=== PATIENT | female | born 1985 | race Caucasian/White ===

== ENCOUNTER 2018-05-30 06:07 | Inpatient (IN) | payer BC ==
[~2018-05-30] VITALS: Ht 165.1 cm; Wt 71.8 kg
[2018-05-30] MEDS ORDERED: OXYTOCIN 30U/ 0.9% NaCL 500ML 500 ML IV ONE (06:10)
[2018-05-30] MEDS ORDERED: OXYTOCIN 30U/ 0.9% NaCL 500ML 500 ML IV PRN (06:10)
[2018-05-30] MEDS: D5%-LACTATED RINGERS 1,000 ML IV SCH ×3 (06:10→22:10)
[2018-05-30] MEDS ORDERED: MISOPROSTOL 25 MCG TABLET ONE (06:18)
[2018-05-30] MEDS ORDERED: OXYTOCIN 30U/ 0.9% NaCL 500ML 500 ML ONE (06:18)
[2018-05-30] MEDS ORDERED: NEWBORN KIT ONE (06:18)
[2018-05-30] MEDS: LACTATED RINGERS 1,000 ML IV SCH ×6 (06:30→22:10)
[2018-05-30] MEDS ORDERED: ONDANSETRON 2MG/ML, 2ML IVPush PRN ×2 (06:30→20:00)
[2018-05-30] MEDS ORDERED: MISOPROSTOL 25 MCG TABLET VG PRN (06:30)
[2018-05-30] MEDS ORDERED: CALCIUM CARBONATE 500 MG TAB.CHEW PO PRN ×2 (06:30→20:30)
[2018-05-30] MEDS ORDERED: FENTANYL PF 100 MCG/2ML IV PRN ×2 (06:30→20:00)
[2018-05-30] MEDS ORDERED: FENTANYL PF 100 MCG/2ML IVPush PRN (06:30)
[2018-05-30 06:32] LABS: BASOPHILS # (AUTO) 0.12 x10^3/uL (0-0.1); BASOPHILS % (AUTO) 1 % (0-1); EOSINOPHILS # (AUTO) 0.11 x10^3/uL (0-0.4); EOSINOPHILS % (AUTO) 1 % (1-7); LYMPHOCYTES # (AUTO) 3.06 x10^3/uL (1-3.4); LYMPHOCYTES % (AUTO) 33 % (22-44); MD NO; MEAN CORPUSCULAR HEMOGLOBIN 32.5 pg (27.0-34.8); MEAN CORPUSCULAR HGB CONC 34.4 g/dL (32.4-35.8); MEAN CORPUSCULAR VOLUME 94.4 fL (80-100); MEAN PLATELET VOLUME 8.3 fL (7.4-10.4); MONOCYTES # (AUTO) 0.63 x10^3/uL (0.2-0.8); MONOCYTES % (AUTO) 7 % (2-9); NEUTROPHILS # (AUTO) 5.28 x10^3/uL (1.8-6.8); NEUTROPHILS % (AUTO) 57 % (42-75); PLATELET COUNT 246 x10^3/uL (130-400); RED BLOOD COUNT 3.98 x10^6/uL (3.82-5.3); RED CELL DISTRIBUTION WIDTH 14.6 % (9.6-15.2)
[2018-05-30 06:43] VITALS: BP 107/66
[2018-05-30] MEDS: PLEASE ENTER HEIGHT AND WEIGHT MC SCH ×3 (06:44→23:00)
[2018-05-30] MEDS ORDERED: PLEASE ENTER ALLERGIES MC SCH (07:00)
[2018-05-30] MEDS ORDERED: TERBUTALINE 1 MG/ML, 1ML ONE (08:43)
[2018-05-30] MEDS: TERBUTALINE 1 MG/ML, 1ML IVPush PRN ×2 (08:44→18:10)
[2018-05-30] MEDS ORDERED: METOCLOPRAMIDE 5 MG/ML, 2ML ONE (08:50)
[2018-05-30] MEDS ORDERED: SODIUM CITRATE/CITRIC ACID 30 ML UDC ONE (08:50)
[2018-05-30] MEDS ORDERED: SODIUM CITRATE/CITRIC ACID 30 ML UDC PO PRN (09:30)
[2018-05-30] MEDS ORDERED: METOCLOPRAMIDE 5 MG/ML, 2ML IVPush PRN (09:30)
[2018-05-30] MEDS ORDERED: TERBUTALINE 1 MG/ML, 1ML IVPush PRN (09:30)
[2018-05-30] MEDS ORDERED: FENTANYL/BUPIV./NS/PF 250 ML EPIDCONT SCH ×2 (09:57→15:10)
[2018-05-30] MEDS ORDERED: FENTANYL PF 500 MCG, BUPIVACAINE/PF 0.5%, 30ML 62.5 ML in SODIUM CHLORIDE 0.9% 177.5 ML EPIDCONT SCH (10:30)
[2018-05-30] MEDS ORDERED: LACTATED RINGERS 1,000 ML IV SCH (15:10)
[2018-05-30] MEDS ORDERED: LACTATED RINGERS 1,000 ML IVBOLUS PRN (15:30)
[2018-05-30] MEDS ORDERED: NALOXONE 0.4 MG/ML, 1ML IVPush PRN (15:30)
[2018-05-30] MEDS ORDERED: EPHEDRINE 50 MG/ML, 1ML IVPush PRN ×2 (15:30→20:00)
[2018-05-30] MEDS ORDERED: BUPIVACAINE/PF 0.25% ONE (15:41)
[2018-05-30] MEDS ORDERED: DEXAMETHASONE 4 MG/ML, 1ML ONE (18:33)
[2018-05-30] MEDS ORDERED: EPHEDRINE 50 MG/ML, 1ML ONE (18:33)
[2018-05-30] MEDS ORDERED: ONDANSETRON 2MG/ML, 2ML ONE (18:33)
[2018-05-30] MEDS ORDERED: CEFAZOLIN 1,000 MG ONE (18:33)
[2018-05-30] MEDS ORDERED: OXYTOCIN 10 UNITS/ML, 1ML ONE (18:33)
[2018-05-30] MEDS ORDERED: PHENYLEPHRINE 10 MG/ML ONE (18:33)
[2018-05-30] MEDS ORDERED: KETOROLAC 30 MG/1 ML ONE (18:33)
[2018-05-30] MEDS: OXYTOCIN 30U/ 0.9% NaCL 500ML 500 ML IV SCH (18:56)
[2018-05-30] MEDS ORDERED: LACTATED RINGERS 1,000 ML IVBOLUS ONE (19:00)
[2018-05-30] MEDS ORDERED: FENTANYL PF 100 MCG/2ML ONE (19:45)
[2018-05-30] MEDS ORDERED: HYDROmorphone 1 MG/ML, 1ML IV PRN (20:00)
[2018-05-30] MEDS ORDERED: MEPERIDINE/PF 25MG/0.5ML IVPush PRN (20:00)
[2018-05-30] MEDS ORDERED: PROMETHAZINE 25 MG/ML, 1ML IV PRN (20:00)
[2018-05-30] MEDS ORDERED: MIDAZOLAM 1 MG/ML, 2ML IV PRN (20:00)
[2018-05-30] MEDS ORDERED: HYDROcodone/APAP 7.5-325MG/15ML UDC PO PRN (20:00)
[2018-05-30] MEDS ORDERED: LABETALOL 5MG/ML, 20ML IV PRN (20:00)
[2018-05-30] MEDS ORDERED: OXYcodone 5 MG/5 ML ORAL.SOL UDC PO PRN (20:00)
[2018-05-30] MEDS ORDERED: hydrALAzine 20 MG/ML, 1ML IV PRN (20:00)
[2018-05-30] MEDS ORDERED: ALBUTEROL SULFATE 2.5 MG/3 ML NPPB PRN (20:00)
[2018-05-30] MEDS ORDERED: OXYTOCIN 30U/ 0.9% NaCL 500ML 500 ML IV SCH (20:14)
[2018-05-30] MEDS ORDERED: MISOPROSTOL 200 MCG TABLET PO PRN (20:30)
[2018-05-30] MEDS ORDERED: morphine SULFATE 10 MG/ML, 1ML IVPush PRN ×2 (20:30)
[2018-05-30] MEDS ORDERED: ONDANSETRON 2MG/ML, 2ML IV PRN (20:30)
[2018-05-30] MEDS ORDERED: OXYcodone/APAP 5/325MG TABLET PO PRN (20:30)
[2018-05-30] MEDS: KETOROLAC 30 MG/1 ML IV SCH (20:30)
[2018-05-30] MEDS ORDERED: HYDROmorphone 2 MG/ML, 1ML IVPush PRN (21:00)
[2018-05-30] MEDS ORDERED: HYDROmorphone 2 MG/ML, 1ML ONE (21:17)
[2018-05-30 22:00] VITALS: BP 100/56
[2018-05-30] MEDS ORDERED: OXYcodone IR 5MG TABLET PO PRN (23:00)
[2018-05-31 00:15] VITALS: BP 101/46
[2018-05-31] MEDS: PLEASE ENTER HEIGHT AND WEIGHT MC SCH (01:45)
[2018-05-31] MEDS: OXYTOCIN 30U/ 0.9% NaCL 500ML 500 ML IV SCH ×2 (01:46→14:56)
[2018-05-31] MEDS: LACTATED RINGERS 1,000 ML IV SCH ×6 (01:46→20:14)
[2018-05-31] MEDS: KETOROLAC 30 MG/1 ML IV SCH ×3 (02:21→15:01)
[2018-05-31 04:30] VITALS: BP 109/62
[2018-05-31] MEDS: OXYcodone/APAP 5/325MG TABLET PO PRN ×4 (05:24→22:57)
[2018-05-31 06:07] LABS: MEAN CORPUSCULAR HGB CONC 33.8 g/dL (32.4-35.8); MEAN CORPUSCULAR VOLUME 94.5 fL (80-100); PLATELET COUNT 194 x10^3/uL (130-400); RED BLOOD COUNT 3.17 x10^6/uL (3.82-5.3); RED CELL DISTRIBUTION WIDTH 14.7 % (9.6-15.2)
[2018-05-31 06:40] LABS: BASOPHILS # (AUTO) 0.07 x10^3/uL (0-0.1); BASOPHILS % (AUTO) 0 % (0-1); EOSINOPHILS # (AUTO) 0.01 x10^3/uL (0-0.4); EOSINOPHILS % (AUTO) 0 % (1-7); LYMPHOCYTES # (AUTO) 1.99 x10^3/uL (1-3.4); LYMPHOCYTES % (AUTO) 12 % (22-44); MD SCAN; MONOCYTES # (AUTO) 0.61 x10^3/uL (0.2-0.8); MONOCYTES % (AUTO) 4 % (2-9); NEUTROPHILS # (AUTO) 13.54 x10^3/uL (1.8-6.8); NEUTROPHILS % (AUTO) 84 % (42-75)
[2018-05-31 07:10] VITALS: BP 100/55
[2018-05-31] MEDS: SIMETHICONE 80 MG CHEW TAB PO PRN (07:25)
[2018-05-31] MEDS: PRENATAL VIT/IRON/FA 1 EACH TABLET PO SCH (07:25)
[2018-05-31] MEDS: DOCUSATE 100 MG CAPSULE PO PRN ×2 (07:25→22:57)
[2018-05-31 12:17] VITALS: BP 100/55
[2018-05-31 16:00] VITALS: BP 99/61
[2018-05-31 19:10] VITALS: BP 99/56
[2018-05-31] MEDS: IBUPROFEN 600 MG TABLET PO PRN (22:57)
[2018-06-01] MEDS: OXYTOCIN 30U/ 0.9% NaCL 500ML 500 ML IV SCH (00:56)
[2018-06-01] MEDS: LACTATED RINGERS 1,000 ML IV SCH ×2 (02:14→04:14)
[2018-06-01] MEDS: OXYcodone IR 5MG TABLET PO PRN ×3 (03:11→15:25)
[2018-06-01 07:40] VITALS: BP 107/70
[2018-06-01] MEDS: SIMETHICONE 80 MG CHEW TAB PO PRN (07:57)
[2018-06-01] MEDS: PRENATAL VIT/IRON/FA 1 EACH TABLET PO SCH (07:57)
[2018-06-01] MEDS ORDERED: IBUP-1222 PO (09:31)
[2018-06-01] MEDS ORDERED: OXYC-302 PO (09:31)
[2018-06-01] MEDS: IBUPROFEN 600 MG TABLET PO PRN (11:09)
== END 2018-06-01 16:12 | disposition home or self-care (01) | DRG 786 ==
LOC: LDIP 06:07 → 2NW 21:29
PROVIDERS: ADMIT Obstetrics & Gynecology; ATTEND Obstetrics & Gynecology
PROC: 10D00Z1 Extraction of Products of Conception, Low, Open Approach (ICD-10-PCS; principal; 2018-05-30)
DX: O76 Abnormality in fetal heart rate and rhythm complicating labor and delivery (principal); O99.42 Diseases of the circulatory system complicating childbirth; O99.354 Diseases of the nervous system complicating childbirth; O36.5930 Maternal care for other known or suspected poor fetal growth, third trimester, not applicable or unspecified; O99.334 Smoking (tobacco) complicating childbirth; F17.210 Nicotine dependence, cigarettes, uncomplicated; R00.1 Bradycardia, unspecified; G43.909 Migraine, unspecified, not intractable, without status migrainosus; Z37.0 Single live birth; Z3A.38 38 weeks gestation of pregnancy; Z80.3 Family history of malignant neoplasm of breast; Z80.41 Family history of malignant neoplasm of ovary; Z88.0 Allergy status to penicillin; Z91.040 Latex allergy status
CPT/HCPCS: 36415; J7121; 82803; 85025; 86850; 86900; G0378; J0690; J1100; J1170; J1885; J2405; J3010; J3490; J2370; J2590; J3105; J7120

== ENCOUNTER → 2020-10-02 | Outpatient (CLI) | payer BC, OTHER ==
[~2020-10-02] MED LIST: IBUP-1222 PO; OXYC1TAB14 PO
== END | disposition home or self-care (01) ==
LOC: STAR 11:06
PROVIDERS: ATTEND Obstetrics & Gynecology
DX: Z20.822 Contact with and (suspected) exposure to COVID-19 (principal)
CPT/HCPCS: U0003

== ENCOUNTER 2020-10-06 03:11 | Inpatient (IN) | payer BC ==
[~2020-10-06] VITALS: Ht 165.1 cm; Wt 78.1 kg
[2020-10-06] MEDS ORDERED: METOCLOPRAMIDE 5 MG/ML, 2ML ONE (03:57)
[2020-10-06] MEDS ORDERED: OXYTOCIN 30U/ 0.9% NaCL 500ML 500 ML ONE (03:57)
[2020-10-06] MEDS ORDERED: SODIUM CITRATE/CITRIC ACID 15 ML UDC ONE (03:57)
[2020-10-06] MEDS ORDERED: NEWBORN KIT ONE (03:57)
[2020-10-06] MEDS ORDERED: LACTATED RINGERS 1,000 ML IVBOLUS ONE (04:00)
[2020-10-06] MEDS ORDERED: SODIUM CITRATE/CITRIC ACID 30 ML UDC PO ONE (04:00)
[2020-10-06] MEDS ORDERED: METOCLOPRAMIDE 5 MG/ML, 2ML IV ONE (04:00)
[2020-10-06 04:17] LABS: BASOPHILS % (AUTO) 0 % (0-1); EOSINOPHILS % (AUTO) 1 % (1-7); LYMPHOCYTES % (AUTO) 25 % (22-44); MEAN CORPUSCULAR HEMOGLOBIN 32.7 pg (27.0-34.8); MEAN CORPUSCULAR HGB CONC 33.7 g/dL (32.4-35.8); MEAN PLATELET VOLUME 8.6 fL (7.4-10.4); MONOCYTES % (AUTO) 7 % (2-9); NEUTROPHILS % (AUTO) 68 % (42-75); PLATELET COUNT 217 x10^3/uL (130-400); RED BLOOD COUNT 3.79 x10^6/uL (3.82-5.3); RED CELL DISTRIBUTION WIDTH 14.3 % (9.6-15.2)
[2020-10-06 04:19] LABS: MD NO
[2020-10-06] MEDS ORDERED: FENTANYL PF 100 MCG/2ML ONE (05:03)
[2020-10-06] MEDS ORDERED: FENTANYL PF 100 MCG/2ML IVPush PRN (05:30)
[2020-10-06] MEDS ORDERED: ACETAMINOPHEN 325 MG TABLET PO PRN (07:30)
[2020-10-06] MEDS: KETOROLAC 30 MG/1 ML IM SCH ×3 (07:30→17:53)
[2020-10-06] MEDS ORDERED: LACTATED RINGERS 1,000 ML IV SCH (07:30)
[2020-10-06] MEDS ORDERED: CARBOPROST TROMETHAMINE 250 MCG/ML, 1ML IM PRN (07:30)
[2020-10-06] MEDS ORDERED: METHYLERGONOVINE 0.2 MG/ML IM PRN (07:30)
[2020-10-06] MEDS ORDERED: GLYCERIN ADULT SUPP PR PRN (07:30)
[2020-10-06] MEDS ORDERED: OXYcodone/APAP 5/325MG TABLET PO PRN (07:30)
[2020-10-06] MEDS ORDERED: ONDANSETRON 2MG/ML, 2ML IV PRN (07:30)
[2020-10-06] MEDS ORDERED: METOCLOPRAMIDE 5 MG/ML, 2ML IV PRN (07:30)
[2020-10-06] MEDS ORDERED: TRANEXAMIC ACID 1,000 MG in SODIUM CHLORIDE 0.9% 100 ML IVPB ONE (07:30)
[2020-10-06] MEDS ORDERED: IBUPROFEN 800 MG TABLET PO PRN (07:30)
[2020-10-06] MEDS ORDERED: MISOPROSTOL 200 MCG TABLET PO PRN (07:30)
[2020-10-06] MEDS ORDERED: BISACODYL 10 MG SUPP PR PRN (07:30)
[2020-10-06] MEDS ORDERED: IBUPROFEN 600 MG TABLET PO PRN (07:30)
[2020-10-06] MEDS ORDERED: EPHEDRINE 50 MG/ML, 1ML IVPush PRN (08:00)
[2020-10-06] MEDS ORDERED: EPHEDRINE 50 MG/ML, 1ML IM PRN (08:00)
[2020-10-06] MEDS ORDERED: morphine SULFATE 10 MG/ML, 1ML IVPush PRN (08:00)
[2020-10-06] MEDS ORDERED: DIPHENHYDRAMINE 50 MG/ML, 1ML IVPush PRN (08:00)
[2020-10-06] MEDS ORDERED: ONDANSETRON 2MG/ML, 2ML IVPush PRN (08:00)
[2020-10-06] MEDS ORDERED: OXYcodone 5 MG/5 ML ORAL.SOL UDC PO PRN (08:00)
[2020-10-06] MEDS ORDERED: FENTANYL PF 100 MCG/2ML IV PRN (08:00)
[2020-10-06] MEDS: OXYTOCIN 30U/ 0.9% NaCL 500ML 500 ML IV SCH ×2 (08:16→17:30)
[2020-10-06] MEDS: LACTATED RINGERS 1,000 ML IV SCH ×2 (08:16→17:30)
[2020-10-06] MEDS: PRENATAL VIT/IRON/FA 1 EACH TABLET PO SCH (09:00)
[2020-10-06 10:10] VITALS: BP 92/52
[2020-10-06] MEDS: OXYcodone IR 5MG TABLET PO PRN ×3 (12:04→21:38)
[2020-10-06] MEDS: KETOROLAC 30 MG/1 ML IV SCH ×3 (13:30→19:54)
[2020-10-06 14:58] LABS: BASOPHILS % (AUTO) 1 % (0-1); EOSINOPHILS % (AUTO) 0 % (1-7); LYMPHOCYTES % (AUTO) 18 % (22-44); MEAN CORPUSCULAR HEMOGLOBIN 32.3 pg (27.0-34.8); MEAN CORPUSCULAR HGB CONC 33.7 g/dL (32.4-35.8); MEAN PLATELET VOLUME 8.4 fL (7.4-10.4); MONOCYTES % (AUTO) 5 % (2-9); NEUTROPHILS % (AUTO) 77 % (42-75); PLATELET COUNT 191 x10^3/uL (130-400); RED CELL DISTRIBUTION WIDTH 14.2 % (9.6-15.2)
[2020-10-06 15:05] LABS: MD NO
[2020-10-06 15:45] VITALS: BP 90/56
[2020-10-06] MEDS: MORPHINE SULFATE 4 MG/ML, 1ML IVPush PRN (18:10)
[2020-10-06 19:44] VITALS: BP 99/60
[2020-10-07 00:26] VITALS: BP 92/54
[2020-10-07] MEDS: SIMETHICONE 80 MG CHEW TAB PO PRN ×3 (00:32→16:15)
[2020-10-07] MEDS: MORPHINE SULFATE 4 MG/ML, 1ML IVPush PRN (00:33)
[2020-10-07] MEDS: KETOROLAC 30 MG/1 ML IM SCH (02:24)
[2020-10-07] MEDS: KETOROLAC 30 MG/1 ML IV SCH ×4 (02:24→20:57)
[2020-10-07] MEDS: OXYcodone IR 5MG TABLET PO PRN ×5 (02:25→20:57)
[2020-10-07] MEDS: LACTATED RINGERS 1,000 ML IV SCH ×3 (03:30→22:27)
[2020-10-07] MEDS: OXYTOCIN 30U/ 0.9% NaCL 500ML 500 ML IV SCH ×3 (03:30→22:28)
[2020-10-07 04:03] VITALS: BP 86/42
[2020-10-07 07:00] VITALS: BP 100/62
[2020-10-07] MEDS: DOCUSATE 100 MG CAPSULE PO PRN ×2 (08:29→20:57)
[2020-10-07] MEDS: PRENATAL VIT/IRON/FA 1 EACH TABLET PO SCH (08:29)
[2020-10-07 20:00] VITALS: BP 91/52
[2020-10-08] MEDS: OXYcodone IR 5MG TABLET PO PRN ×3 (02:32→12:07)
[2020-10-08] MEDS: KETOROLAC 30 MG/1 ML IV SCH (02:32)
[2020-10-08] MEDS: PRENATAL VIT/IRON/FA 1 EACH TABLET PO SCH (07:00)
[2020-10-08 07:03] VITALS: BP 100/62
[2020-10-08] MEDS: OXYTOCIN 30U/ 0.9% NaCL 500ML 500 ML IV SCH (08:09)
[2020-10-08] MEDS: LACTATED RINGERS 1,000 ML IV SCH (08:09)
[2020-10-08] MEDS ORDERED: DOCU-131 PO (12:35)
[2020-10-08] MEDS ORDERED: IBUP-1223 PO (12:35)
[2020-10-08] MEDS ORDERED: OXYC5TAB98 PO (12:36)
[2020-10-08] MEDS ORDERED: ACET650S21 PO (12:36)
== END 2020-10-08 13:50 | disposition home or self-care (01) | DRG 787 ==
LOC: LDOP 03:11 → LDIP 03:47 → 2NW 10:00
PROVIDERS: ADMIT Obstetrics & Gynecology; ATTEND Obstetrics & Gynecology
PROC: 10D00Z1 Extraction of Products of Conception, Low, Open Approach (ICD-10-PCS; principal; 2020-10-06)
DX: O76 Abnormality in fetal heart rate and rhythm complicating labor and delivery (principal); O99.354 Diseases of the nervous system complicating childbirth; O34.211 Maternal care for low transverse scar from previous cesarean delivery; O99.334 Smoking (tobacco) complicating childbirth; O99.344 Other mental disorders complicating childbirth; G43.909 Migraine, unspecified, not intractable, without status migrainosus; F32.9 Major depressive disorder, single episode, unspecified; F17.210 Nicotine dependence, cigarettes, uncomplicated; Z37.0 Single live birth; Z3A.39 39 weeks gestation of pregnancy; Z80.3 Family history of malignant neoplasm of breast; Z80.41 Family history of malignant neoplasm of ovary; Z88.0 Allergy status to penicillin; Z91.040 Latex allergy status
CPT/HCPCS: 36415; 85025; 86592; 86850; 86900; G0378; J1885; J3010; J2270; J2590; J2765; J7120